=== PATIENT | male | born 1955 | race Caucasian/White ===

== ENCOUNTER 2023-10-13 06:26 | Day surgery (SDC) | payer MEDICARE, OTHER ==
[2023-10-13] MEDS ORDERED: Lactated Ringers 1,000 ML IV SCH (07:00)
[2023-10-13] MEDS ORDERED: Midazolam 1 MG/ML 2 ML SDV ONE (07:58)
[2023-10-13] MEDS ORDERED: fentaNYL 100 MCG/2 ML SDV ONE (07:58)
[2023-10-13] MEDS ORDERED: Propofol 200 MG/20 ML SDV ONE (07:58)
== END 2023-10-13 10:04 | disposition home or self-care (01) ==
LOC: VM.SDS 06:26
PROVIDERS: ATTEND Student in an Organized Health Care Education/Training Program
DX: Z12.11 Encounter for screening for malignant neoplasm of colon (principal); D12.3 Benign neoplasm of transverse colon; E11.29 Type 2 diabetes mellitus with other diabetic kidney complication; J43.9 Emphysema, unspecified; K51.40 Inflammatory polyps of colon without complications; E78.5 Hyperlipidemia, unspecified; I10 Essential (primary) hypertension; E11.42 Type 2 diabetes mellitus with diabetic polyneuropathy; Z79.899 Other long term (current) drug therapy; Z79.84 Long term (current) use of oral hypoglycemic drugs; Z88.8 Allergy status to other drugs, medicaments and biological substances
CPT/HCPCS: 00811; 82947; 88305; J2250; J2704; J3010; J7120

== ENCOUNTER 2025-04-18 17:06 | Emergency (ER) | payer MEDICARE, OTHER ==
[2025-04-18] MEDS: Tetracaine HCl/PF 0.5% 4 ML Bottle EYERT ONE (17:36)
[2025-04-18] MEDS: Fluorescein 1 MG Ophth Strip EYERT ONE (17:36)
[2025-04-18] MEDS: Erythromycin Base 0.5% Ophth Oint 3.5 GM Tube EYERT ONE (17:58)
== END 2025-04-18 18:05 | disposition home or self-care (01) ==
LOC: VM.ED 17:06
DX: S05.01XA Injury of conjunctiva and corneal abrasion without foreign body, right eye, initial encounter (principal); I10 Essential (primary) hypertension; E78.00 Pure hypercholesterolemia, unspecified; E11.9 Type 2 diabetes mellitus without complications; Z88.8 Allergy status to other drugs, medicaments and biological substances; Z79.84 Long term (current) use of oral hypoglycemic drugs; Z79.899 Other long term (current) drug therapy; X58.XXXA Exposure to other specified factors, initial encounter
CPT/HCPCS: 99283; A9270-GY; J3490